=== PATIENT | female | born 1940 | race Caucasian/White ===

== ENCOUNTER → 2016-11-04 15:23 | Outpatient (CLI) | payer MEDICARE, OTHER ==
[2015-05-08 07:42] VITALS: BMI 23.1
[~2016-11-04 15:23] MED LIST: ASPIRIN325 MG PO; LOVASTATIN10 MG PO; LOVASTATIN20 MG; PRINIVIL20 MG PO
== END | disposition home or self-care (01) ==
LOC: D.US 15:23
DX: I70.8 Atherosclerosis of other arteries (principal); I65.8 Occlusion and stenosis of other precerebral arteries

== ENCOUNTER → 2016-12-03 05:11 | Outpatient (CLI) | payer MEDICARE, OTHER ==
[2015-05-08 07:42] VITALS: BMI 23.1
== END | disposition home or self-care (01) ==
LOC: D.CT 05:11
DX: I70.8 Atherosclerosis of other arteries (principal)